=== PATIENT | female | born 1950 | race Caucasian/White ===

== ENCOUNTER 2018-09-18 15:34 | Emergency (ER) | payer MEDICARE, MEDICAID ==
[~2018-09-18] VITALS: Ht 162.6 cm; Wt 91.5 kg
[2018-09-18 15:43] VITALS: BP 151/83
[2018-09-18] MEDS ORDERED: triamcinolone acetonide 40mg/ml inj IM ONE (16:05)
[2018-09-18] MEDS ORDERED: DOXY100C43 PO (16:15)
[2018-09-18] MEDS ORDERED: METH4TAB81 PO (16:15)
[2018-09-18] MEDS ORDERED: MUPI22OI30 TOP (16:15)
[2018-09-18] MEDS ORDERED: KEN0.1O TP (16:15)
== END 2018-09-18 16:31 | disposition home or self-care (01) ==
LOC: ER 15:35
DX: L03.031 Cellulitis of right toe (principal); L23.9 Allergic contact dermatitis, unspecified cause; B35.1 Tinea unguium; Z79.899 Other long term (current) drug therapy
CPT/HCPCS: 96372; 99284; J3301

== ENCOUNTER 2019-02-16 00:25 | Emergency (ER) | payer MEDICARE, MEDICAID ==
[~2019-02-16] VITALS: Ht 162.6 cm; Wt 100.0 kg
[~2019-02-16 00:25] MED LIST: METH4TAB81 PO
[2019-02-16 00:36] VITALS: BP 140/63
[2019-02-16] MEDS ORDERED: DOXY100C43 PO (01:28)
[2019-02-16] MEDS ORDERED: MUPI22OI30 TOP (01:47)
[2019-02-16] MEDS ORDERED: DOXYCYCLINE 100MG CAPSULE PO STA (02:07)
== END 2019-02-16 02:23 | disposition home or self-care (01) ==
LOC: ER 00:26
DX: L03.031 Cellulitis of right toe (principal); Z79.899 Other long term (current) drug therapy
CPT/HCPCS: 73630; 99283